=== PATIENT | male | born 1965 | race Caucasian/White ===

== ENCOUNTER 2020-08-25 12:50 | Inpatient (IN) | payer MEDICAID, OTHER ==
[~2020-08-25] VITALS: Ht 160 cm; Wt 57.2 kg
[2020-08-25] MEDS ORDERED: NITROGLYCERIN 0.4MG TABLET SL SL PRN ×2 (13:30→15:00)
[2020-08-25 14:19] LABS: BASOPHILS % 1.4 % (0.0-2.0); CHLORIDE 105 mEq/L (98-107); EOSINOPHILS % 5.4 % (0.0-5.0); MEAN CORPUSCULAR VOLUME 87.5 fL (80.0-94.0); MEAN PLATELET VOLUME 8.2 fl (7.4-10.4); MONOCYTES % 6.3 % (2.0-8.0); NEUTROPHILS % 69.9 % (40.0-76.0); PLATELET 352 x1000/uL (130-400); RED BLOOD CELL COUNT 2.33 mill/uL (4.7-6.1); RED CELL DISTRIBUTION WIDTH 14.5 % (11.6-14.6)
[2020-08-25 14:43] LABS: HEMATOCRIT. 20.4 % (42.0-52.0)
[2020-08-25] MEDS ORDERED: ZOLPIDEM TARTRATE 5MG TABLET PO PRN (15:00)
[2020-08-25] MEDS ORDERED: DOCUSATE SODIUM 100MG CAPSULE PO PRN (15:00)
[2020-08-25] MEDS ORDERED: DEXTROSE 50% WATER 50ML SYRINGE IV PRN (15:00)
[2020-08-25] MEDS ORDERED: CLONIDINE 0.1MG TABLET PO PRN (15:00)
[2020-08-25] MEDS ORDERED: DIPHENHYDRAMINE 50MG/ML VIAL IV PRN (15:00)
[2020-08-25] MEDS ORDERED: MAGNESIUM/ALUMINUM HYDROXIDE/SIMETHICONE 30ML UDC PO PRN (15:00)
[2020-08-25] MEDS ORDERED: ALBUTEROL 6.7GM HFA INHALER ORI PRN (15:00)
[2020-08-25] MEDS ORDERED: GUAIFENESIN 200MG/10ML SUGAR FREE UDC PO PRN (15:00)
[2020-08-25] MEDS: ALBUTEROL 6.7GM HFA INHALER ORI SCH ×2 (15:00→21:00)
[2020-08-25] MEDS ORDERED: NOREPINEPHRINE 8 MG in DEXT 5% WATER 242 ML IV PRN (15:00)
[2020-08-25] MEDS ORDERED: ONDANSETRON HCL 4MG/2ML INJ IV PRN (15:00)
[2020-08-25] MEDS ORDERED: ACETAMINOPHEN 325MG TABLET PO PRN (15:00)
[2020-08-25 15:22] LABS: INR 1.1; PARTIAL THROMBOPLASTIN TIME 30.4 sec (23.4-31.0); PROTHROMBIN TIME 11.1 sec (9.6-11.0)
[2020-08-25] MEDS: AMLODIPINE 10MG TABLET PO SCH (15:58)
[2020-08-25 16:48] LABS: VITAMIN B12 SERUM 944 pg/mL (211-911)
[2020-08-25 16:50] LABS: FOLIC ACID (FOLATE) SERUM > 20.00 ng/mL (>5.38)
[2020-08-25] MEDS: FAMOTIDINE 20MG TABLET PO SCH (17:00)
[2020-08-25] MEDS: ACETAMINOPHEN 325MG TABLET PO PRN (17:12)
[2020-08-25] MEDS: BLOOD SUGAR DIAGNOSTIC STRIP TEST SCH ×2 (17:55→22:37)
[2020-08-25] MEDS: INSULIN LISPRO 100 UNITS/ML SUBCUT SCH ×2 (18:38→22:51)
[2020-08-25] MEDS ORDERED: INSULIN GLARGINE UD 100 UNITS/ML SYR SUBCUT SCH (22:00)
[2020-08-25] MEDS: SEVELAMER CARBONATE 800 MG TABLET PO SCH (22:30)
[2020-08-25] MEDS: ASCORBIC ACID 500 MG TABLET PO SCH (22:51)
[2020-08-25] MEDS: METOPROLOL TARTRATE 25MG TABLET PO SCH (22:52)
[2020-08-25 23:42] LABS: CREATINE KINASE 48 IU/L (39-308)
[2020-08-25 23:43] LABS: CREATINE KINASE MB FRACTION 1.6 ng/mL (0.5-3.6)
[2020-08-26] MEDS: ALBUTEROL 6.7GM HFA INHALER ORI SCH (03:00)
[2020-08-26] MEDS: BLOOD SUGAR DIAGNOSTIC STRIP TEST SCH ×4 (06:29→21:00)
[2020-08-26] MEDS: SEVELAMER CARBONATE 800 MG TABLET PO SCH ×3 (06:29→16:52)
[2020-08-26] MEDS: INSULIN LISPRO 100 UNITS/ML SUBCUT SCH ×4 (06:29→21:00)
[2020-08-26] MEDS: ASCORBIC ACID 500 MG TABLET PO SCH ×2 (08:24→23:11)
[2020-08-26] MEDS: ZINC SULFATE 220 MG ( 50 ) CAPSULE PO SCH (08:24)
[2020-08-26] MEDS: METOPROLOL TARTRATE 25MG TABLET PO SCH ×2 (08:24→23:11)
[2020-08-26] MEDS: AMLODIPINE 10MG TABLET PO SCH (08:24)
[2020-08-26 08:49] LABS: BASOPHILS % 1.5 % (0.0-2.0); EOSINOPHILS % 3.7 % (0.0-5.0); HEMOGLOBIN. 9.2 g/dL (14.0-18.0); LYMPHOCYTES % 20.8 % (20.0-50.0); MEAN CORPUSCULAR VOLUME 87.7 fL (80.0-94.0); MEAN PLATELET VOLUME 7.5 fl (7.4-10.4); MONOCYTES % 6.7 % (2.0-8.0); NEUTROPHILS % 67.3 % (40.0-76.0); PLATELET 381 x1000/uL (130-400); RED BLOOD CELL COUNT 3.08 mill/uL (4.7-6.1); RED CELL DISTRIBUTION WIDTH 14.6 % (11.6-14.6)
[2020-08-26 08:58] LABS: CHLORIDE 110 mEq/L (98-107)
[2020-08-26 09:05] LABS: PHOSPHORUS 4.9 mg/dL (2.5-4.9)
[2020-08-26 09:07] LABS: CREATINE KINASE 40 IU/L (39-308)
[2020-08-26 09:10] LABS: CREATINE KINASE MB FRACTION 1.6 ng/mL (0.5-3.6)
[2020-08-26 09:28] LABS: *AMPHETAMINES SCREEN URINE NEGATIVE (NEGATIVE); *BARBITURATES SCREEN URINE NEGATIVE (NEGATIVE); *BENZODIAZEPINES SCREEN URINE NEGATIVE (NEGATIVE); *COCAINE SCREEN URINE NEGATIVE (NEGATIVE)
[2020-08-26 09:29] LABS: CANNABINOID URINE SCREEN NEGATIVE (NEGATIVE); METHADONE URINE SCREEN NEGATIVE (NEGATIVE); OPIATES URINE SCREEN NEGATIVE (NEGATIVE); PHENCYCLIDINE URINE SCREEN NEGATIVE (NEGATIVE)
[2020-08-26] MEDS: FUROSEMIDE 40MG/4ML VIAL IVP SCH (09:36)
[2020-08-26] MEDS: ACETAMINOPHEN 325MG TABLET PO PRN (12:00)
[2020-08-26 15:25] VITALS: BP 137/83
[2020-08-26] MEDS: FAMOTIDINE 20MG TABLET PO SCH (16:52)
[2020-08-26 22:00] VITALS: BP 141/84
[2020-08-27 04:00] VITALS: BP 145/90
[2020-08-27] MEDS: NITROGLYCERIN 0.4MG TABLET SL SL PRN ×3 (06:30→08:58)
[2020-08-27] MEDS: SEVELAMER CARBONATE 800 MG TABLET PO SCH ×3 (06:50→17:05)
[2020-08-27] MEDS: BLOOD SUGAR DIAGNOSTIC STRIP TEST SCH ×4 (07:25→21:00)
[2020-08-27] MEDS: INSULIN GLARGINE UD 100 UNITS/ML SYR SUBCUT SCH (07:26)
[2020-08-27 07:28] LABS: BASOPHILS % 1.9 % (0.0-2.0); EOSINOPHILS % 5.5 % (0.0-5.0); HEMATOCRIT. 27.7 % (42.0-52.0); HEMOGLOBIN. 9.5 g/dL (14.0-18.0); LYMPHOCYTES % 18.4 % (20.0-50.0); MEAN CORPUSCULAR HEMOGLOBIN 30.1 pg (28.0-32.0); MEAN CORPUSCULAR VOLUME 87.7 fL (80.0-94.0); MEAN PLATELET VOLUME 7.9 fl (7.4-10.4); MONOCYTES % 7.6 % (2.0-8.0); NEUTROPHILS % 66.6 % (40.0-76.0); PLATELET 402 x1000/uL (130-400); RED BLOOD CELL COUNT 3.16 mill/uL (4.7-6.1); RED CELL DISTRIBUTION WIDTH 14.9 % (11.6-14.6)
[2020-08-27 08:00] VITALS: BP 142/85
[2020-08-27] MEDS: FUROSEMIDE 40MG/4ML VIAL IVP SCH (08:47)
[2020-08-27] MEDS: AMLODIPINE 10MG TABLET PO SCH (08:47)
[2020-08-27] MEDS: ZINC SULFATE 220 MG ( 50 ) CAPSULE PO SCH (08:48)
[2020-08-27] MEDS: METOPROLOL TARTRATE 25MG TABLET PO SCH ×2 (08:48→23:28)
[2020-08-27] MEDS: INSULIN LISPRO 100 UNITS/ML SUBCUT SCH ×4 (09:10→21:00)
[2020-08-27] MEDS: ASCORBIC ACID 500 MG TABLET PO SCH ×2 (13:11→23:28)
[2020-08-27] MEDS: ACETAMINOPHEN 325MG TABLET PO PRN (13:11)
[2020-08-27 14:00] VITALS: BP 135/77
[2020-08-27] MEDS: FAMOTIDINE 20MG TABLET PO SCH (17:05)
[2020-08-28] MEDS: BLOOD SUGAR DIAGNOSTIC STRIP TEST SCH ×4 (06:52→21:00)
[2020-08-28] MEDS: SEVELAMER CARBONATE 800 MG TABLET PO SCH ×3 (06:53→17:34)
[2020-08-28] MEDS: INSULIN GLARGINE UD 100 UNITS/ML SYR SUBCUT SCH (06:54)
[2020-08-28 08:00] VITALS: BP 148/84
[2020-08-28] MEDS: METOPROLOL TARTRATE 25MG TABLET PO SCH ×2 (08:24→20:34)
[2020-08-28] MEDS: FUROSEMIDE 40MG/4ML VIAL IVP SCH (08:24)
[2020-08-28] MEDS: ZINC SULFATE 220 MG ( 50 ) CAPSULE PO SCH (08:24)
[2020-08-28] MEDS: AMLODIPINE 10MG TABLET PO SCH (08:25)
[2020-08-28] MEDS: ASCORBIC ACID 500 MG TABLET PO SCH ×2 (08:25→20:33)
[2020-08-28] MEDS: INSULIN LISPRO 100 UNITS/ML SUBCUT SCH ×4 (08:27→22:56)
[2020-08-28 14:00] VITALS: BP 138/83
[2020-08-28] MEDS: FAMOTIDINE 20MG TABLET PO SCH (17:34)
[2020-08-29] MEDS: SEVELAMER CARBONATE 800 MG TABLET PO SCH ×3 (06:18→18:48)
[2020-08-29] MEDS: BLOOD SUGAR DIAGNOSTIC STRIP TEST SCH ×3 (06:21→21:00)
[2020-08-29] MEDS: INSULIN LISPRO 100 UNITS/ML SUBCUT SCH ×4 (06:22→23:08)
[2020-08-29 06:51] LABS: EOSINOPHILS % 3.5 % (0.0-5.0); HEMATOCRIT. 29.1 % (42.0-52.0); LYMPHOCYTES % 16.5 % (20.0-50.0); MEAN CORPUSCULAR HEMOGLOBIN 29.6 pg (28.0-32.0); MEAN CORPUSCULAR VOLUME 86.7 fL (80.0-94.0); MEAN PLATELET VOLUME 7.8 fl (7.4-10.4); MONOCYTES % 6.4 % (2.0-8.0); NEUTROPHILS % 72.6 % (40.0-76.0); PLATELET 413 x1000/uL (130-400); RED BLOOD CELL COUNT 3.36 mill/uL (4.7-6.1); RED CELL DISTRIBUTION WIDTH 14.5 % (11.6-14.6)
[2020-08-29 08:10] VITALS: BP 128/81
[2020-08-29] MEDS: AMLODIPINE 10MG TABLET PO SCH (09:54)
[2020-08-29] MEDS: ZINC SULFATE 220 MG ( 50 ) CAPSULE PO SCH (09:54)
[2020-08-29] MEDS: METOPROLOL TARTRATE 25MG TABLET PO SCH ×2 (09:54→22:06)
[2020-08-29] MEDS: FUROSEMIDE 40MG/4ML VIAL IVP SCH (09:54)
[2020-08-29] MEDS: INSULIN GLARGINE UD 100 UNITS/ML SYR SUBCUT SCH (09:58)
[2020-08-29 12:06] VITALS: BP 144/76
[2020-08-29] MEDS: ASCORBIC ACID 500 MG TABLET PO SCH ×2 (13:48→22:07)
[2020-08-29 16:06] VITALS: BP 140/84
[2020-08-29] MEDS: FAMOTIDINE 20MG TABLET PO SCH (18:48)
[2020-08-29 22:00] VITALS: BP 151/77
[2020-08-30 06:00] VITALS: BP 138/77
[2020-08-30] MEDS: INSULIN LISPRO 100 UNITS/ML SUBCUT SCH (06:47)
[2020-08-30] MEDS: BLOOD SUGAR DIAGNOSTIC STRIP TEST SCH (06:47)
[2020-08-30] MEDS: SEVELAMER CARBONATE 800 MG TABLET PO SCH (06:48)
[2020-08-30 08:00] VITALS: BP 147/86
[2020-08-30] MEDS: ALBUTEROL 6.7GM HFA INHALER ORI SCH (09:00)
[2020-08-30] MEDS: ASCORBIC ACID 500 MG TABLET PO SCH (09:39)
[2020-08-30] MEDS: FUROSEMIDE 40MG/4ML VIAL IVP SCH (09:39)
[2020-08-30] MEDS: ZINC SULFATE 220 MG ( 50 ) CAPSULE PO SCH (09:39)
[2020-08-30] MEDS: AMLODIPINE 10MG TABLET PO SCH (09:39)
[2020-08-30] MEDS: METOPROLOL TARTRATE 25MG TABLET PO SCH (09:39)
[2020-08-30] MEDS: INSULIN GLARGINE UD 100 UNITS/ML SYR SUBCUT SCH (10:45)
[2020-08-30 10:50] VITALS: BP 147/86
== END 2020-08-30 11:38 | disposition home or self-care (01) | DRG 137 ==
LOC: ER 12:50 → MICUSO 14:46 → EDBEDREQ 15:05 → 7EST 08-26 11:12
PROVIDERS: ADMIT Internal Medicine; ATTEND Internal Medicine
PROC: 30233N1 Transfusion of Nonautologous Red Blood Cells into Peripheral Vein, Percutaneous Approach (ICD-10-PCS; principal; 2020-08-26)
DX: U07.1 COVID-19 (principal); N17.0 Acute kidney failure with tubular necrosis; D63.1 Anemia in chronic kidney disease; E43 Unspecified severe protein-calorie malnutrition; E11.65 Type 2 diabetes mellitus with hyperglycemia; E83.51 Hypocalcemia; I50.30 Unspecified diastolic (congestive) heart failure; E87.5 Hyperkalemia; N04.9 Nephrotic syndrome with unspecified morphologic changes; E11.22 Type 2 diabetes mellitus with diabetic chronic kidney disease; E78.00 Pure hypercholesterolemia, unspecified; E11.21 Type 2 diabetes mellitus with diabetic nephropathy; I13.2 Hypertensive heart and chronic kidney disease with heart failure and with stage 5 chronic kidney disease, or end stage renal disease; N18.6 End stage renal disease; Z68.22 Body mass index [BMI] 22.0-22.9, adult; Z79.899 Other long term (current) drug therapy; Z99.2 Dependence on renal dialysis
CPT/HCPCS: 36415; 71045; 80048; 80053; 80061; 80305; 82550; 82553; 82607; 82746; 82962; 83036; 83540; 83550; 83735; 83880; 84100; 84145; 84484; 85025; 86850; 86900; 86920; 93005; 93970; 99285; J1815; J1940; P9016; U0003

== ENCOUNTER 2020-09-23 11:28 | Emergency (ER) | payer MEDICAID ==
[~2020-09-23] VITALS: Ht 160 cm; Wt 66.0 kg
[2020-09-23] MEDS ORDERED: TETRACAINE 0.5% OPHTH DROPS 4ML LEFTEYE ONE (12:15)
[2020-09-23] MEDS ORDERED: BALANCED SALT IRRIG SOLN 15ML IR ONE (12:15)
[2020-09-23] MEDS ORDERED: ACETAMINOPHEN 325MG TABLET PO STA (12:15)
[2020-09-23] MEDS ORDERED: FLUORESCEIN SODIUM 1MG/STRIP LEFTEYE ONE (12:15)
[2020-09-23] MEDS ORDERED: ACET-2708 PO (14:36)
[2020-09-23 14:47] VITALS: BP 159/85
== END 2020-09-23 14:48 | disposition home or self-care (01) ==
LOC: ER 11:28
DX: H54.61 Unqualified visual loss, right eye, normal vision left eye (principal); H54.7 Unspecified visual loss; R51.9 Headache, unspecified; I11.0 Hypertensive heart disease with heart failure; I50.9 Heart failure, unspecified; E11.9 Type 2 diabetes mellitus without complications
CPT/HCPCS: 99283

== ENCOUNTER 2021-09-17 11:00 | Inpatient (IN) | payer MEDICAID ==
[~2021-09-17] VITALS: Ht 160 cm; Wt 69.9 kg
[~2021-09-17 11:00] MED LIST: ACET-2708 PO; ASCO-339 MT; FURO40TA5 MT; INSU100V3 SUBCUT; LOSA25TA26 MT; SODI650T MT
[2021-09-17 11:53] LABS: HEMATOCRIT. 35.5 % (42.0-52.0); HEMOGLOBIN. 11.4 g/dL (14.0-18.0); MEAN CORPUSCULAR HEMOGLOBIN 30.3 pg (28.0-32.0); MEAN CORPUSCULAR VOLUME 94.3 fL (80.0-94.0); MEAN PLATELET VOLUME 8.1 fl (7.4-10.4); PLATELET 293 x1000/uL (130-400); RED BLOOD CELL COUNT 3.76 mill/uL (4.7-6.1); RED CELL DISTRIBUTION WIDTH 14.3 % (11.6-14.6)
[2021-09-17 11:59] LABS: CHLORIDE 102 mEq/L (98-107)
[2021-09-17 12:55] LABS: PLATELET ESTIMATE NORMAL
[2021-09-17] MEDS ORDERED: CALCIUM GLUCONATE 1,000 MG in DEXT 5% WATER 100 ML IV ONE (13:15)
[2021-09-17] MEDS ORDERED: MORPHINE SULFATE 4 MG/ML CPJ (NOT FOR IM USE) IV STA (13:15)
[2021-09-17] MEDS ORDERED: ONDANSETRON HCL 4MG/2ML INJ IV STA (13:15)
[2021-09-17] MEDS ORDERED: INSULIN REGULAR (HUMULIN R) 300UNITS/3ML VIAL IV ONE (13:15)
[2021-09-17] MEDS ORDERED: SODIUM BICARBONATE 8.4% 1 MEQ/ML 50ML SYR IV ONE (13:15)
[2021-09-17] MEDS ORDERED: DEXTROSE 50% WATER 50ML SYRINGE IV ONE (13:15)
[2021-09-17] MEDS ORDERED: CALCIUM GLUCONATE 1GM PREMIX 50 ML IV SCH (14:00)
[2021-09-17] MEDS ORDERED: TETRACAINE 0.5% OPHTH DROPS 4ML LEFTEYE ONE (14:15)
[2021-09-17] MEDS ORDERED: CYCLOPENTOLATE HCL 1% OPHTH DROPS 2ML LEFTEYE SCH (15:00)
[2021-09-17] MEDS ORDERED: NITROGLYCERIN 0.4MG TABLET SL SL PRN (17:15)
[2021-09-17] MEDS ORDERED: ZOLPIDEM TARTRATE 5MG TABLET PO PRN (17:15)
[2021-09-17] MEDS ORDERED: DEXTROSE 50% WATER 50ML SYRINGE IV PRN (17:15)
[2021-09-17] MEDS ORDERED: IPRATROPIUM/ALBUTEROL 0.5-3(2.5)MG/3ML NEB NEB PRN (17:15)
[2021-09-17] MEDS ORDERED: GUAIFENESIN 200MG/10ML SUGAR FREE UDC PO PRN (17:15)
[2021-09-17] MEDS ORDERED: MAGNESIUM/ALUMINUM HYDROXIDE/SIMETHICONE 30ML UDC PO PRN (17:15)
[2021-09-17] MEDS ORDERED: DOCUSATE SODIUM 100MG CAPSULE PO PRN (17:15)
[2021-09-17] MEDS ORDERED: ACETAMINOPHEN 325MG TABLET PO PRN ×2 (17:15)
[2021-09-17] MEDS ORDERED: DIPHENHYDRAMINE 50MG/ML VIAL IV PRN (17:15)
[2021-09-17] MEDS: PREDNISOLONE ACETATE 1% OPHTH DROPS 5ML LEFTEYE SCH (18:55)
[2021-09-17] MEDS: INSULIN LISPRO 100 UNITS/ML SUBCUT SCH ×2 (19:49→21:00)
[2021-09-17] MEDS: ACETAZOLAMIDE 250MG TABLET PO SCH (20:15)
[2021-09-17] MEDS: CLONIDINE 0.1MG TABLET PO PRN (20:15)
[2021-09-17] MEDS: TRAMADOL 50MG TABLET PO PRN (20:16)
[2021-09-17] MEDS: METOPROLOL TARTRATE 25MG TABLET PO SCH (21:43)
[2021-09-17] MEDS: ENOXAPARIN 30MG/0.3ML SYR SUBCUT SCH (21:43)
[2021-09-17] MEDS: FAMOTIDINE 20MG TABLET PO SCH (21:44)
[2021-09-17] MEDS: BLOOD SUGAR DIAGNOSTIC STRIP TEST SCH (21:44)
[2021-09-17] MEDS: BRIMONIDINE 0.2% OPHTH DROPS 5ML BOTHEYE SCH (21:48)
[2021-09-17] MEDS: PILOCARPINE HCL 1% OPHTH DROPS 15ML BOTHEYE SCH (21:48)
[2021-09-17 22:48] LABS: CREATINE KINASE MB FRACTION 3.9 ng/mL (0.5-3.6)
[2021-09-18] VITALS (7 sets, daily range): BP systolic 118–200; BP diastolic 67–96
[2021-09-18] MEDS: PREDNISOLONE ACETATE 1% OPHTH DROPS 5ML LEFTEYE SCH ×2 (00:26→06:35)
[2021-09-18] MEDS: ACETAZOLAMIDE 250MG TABLET PO SCH ×2 (00:26→06:33)
[2021-09-18 05:25] LABS: BASOPHILS % 1.6 % (0.0-2.0); EOSINOPHILS % 4.9 % (0.0-5.0); HEMATOCRIT. 31.2 % (42.0-52.0); HEMOGLOBIN. 9.9 g/dL (14.0-18.0); LYMPHOCYTES % 8.2 % (20.0-50.0); MEAN CORPUSCULAR HEMOGLOBIN 30.4 pg (28.0-32.0); MEAN CORPUSCULAR VOLUME 95.9 fL (80.0-94.0); MEAN PLATELET VOLUME 8.8 fl (7.4-10.4); MONOCYTES % 8.4 % (2.0-8.0); NEUTROPHILS % 76.9 % (40.0-76.0); PLATELET 248 x1000/uL (130-400); RED BLOOD CELL COUNT 3.26 mill/uL (4.7-6.1); RED CELL DISTRIBUTION WIDTH 14.5 % (11.6-14.6)
[2021-09-18 05:29] LABS: CHLORIDE 105 mEq/L (98-107)
[2021-09-18 05:36] LABS: PHOSPHORUS 4.8 mg/dL (2.5-4.9)
[2021-09-18 05:38] LABS: CREATINE KINASE 64 IU/L (39-308)
[2021-09-18 05:41] LABS: CREATINE KINASE MB FRACTION 3.9 ng/mL (0.5-3.6)
[2021-09-18] MEDS: SEVELAMER CARBONATE 800 MG TABLET PO SCH ×3 (06:33→17:31)
[2021-09-18] MEDS: BRIMONIDINE 0.2% OPHTH DROPS 5ML BOTHEYE SCH (06:35)
[2021-09-18] MEDS: PILOCARPINE HCL 1% OPHTH DROPS 15ML BOTHEYE SCH (06:35)
[2021-09-18] MEDS ORDERED: SODIUM POLYSTYRENE SULFONATE 15 G/60 ML BOT PO SCH ×2 (07:00→07:21)
[2021-09-18] MEDS: INSULIN LISPRO 100 UNITS/ML SUBCUT SCH ×4 (07:00→22:08)
[2021-09-18] MEDS ORDERED: SODIUM BICARBONATE 8.4% 1 MEQ/ML 50ML SYR IV SCH ×2 (07:00→07:21)
[2021-09-18] MEDS: BLOOD SUGAR DIAGNOSTIC STRIP TEST SCH ×4 (07:07→21:00)
[2021-09-18] MEDS ORDERED: INSULIN REGULAR (HUMULIN R) 300UNITS/3ML VIAL IV SCH ×2 (07:15→07:21)
[2021-09-18] MEDS ORDERED: DEXTROSE 50% WATER 50ML SYRINGE IV SCH ×2 (07:15→07:21)
[2021-09-18] MEDS ORDERED: CALCIUM GLUCONATE 1,000 MG in DEXT 5% WATER 90 ML IV STA (07:21)
[2021-09-18] MEDS ORDERED: CALCIUM GLUCONATE 1GM PREMIX 50 ML IV SCH (08:00)
[2021-09-18] MEDS: METOPROLOL TARTRATE 25MG TABLET PO SCH ×3 (09:00→22:04)
[2021-09-18] MEDS: ASPIRIN 325MG EC TABLET PO SCH (11:04)
[2021-09-18] MEDS: TRAMADOL 50MG TABLET PO PRN ×2 (11:54→23:33)
[2021-09-18] MEDS: CLONIDINE 0.1MG TABLET PO PRN (11:54)
[2021-09-18] MEDS: NIFEDIPINE XL 60MG TAB PO SCH (13:57)
[2021-09-18] MEDS: HYDRALAZINE HCL 50MG TABLET PO SCH ×2 (13:57→22:06)
[2021-09-18] MEDS ORDERED: TIMO5DRO32 EACHEYE (18:39)
[2021-09-18] MEDS ORDERED: BRIM5DRO6 LEFTEYE (18:40)
[2021-09-18] MEDS ORDERED: MOXI3DRO12 LEFTEYE (18:40)
[2021-09-18] MEDS ORDERED: PRED5DRO22 LEFTEYE (18:40)
[2021-09-18] MEDS ORDERED: CARV6.2548 MT (18:45)
[2021-09-18] MEDS ORDERED: LANTUSUD SUBCUT (18:45)
[2021-09-18] MEDS ORDERED: FURO80TA3 MT (18:45)
[2021-09-18] MEDS ORDERED: ASPI-1497 MT (18:45)
[2021-09-18] MEDS ORDERED: NALOXONE HCL 0.4MG/ML VIAL IV PRN (19:15)
[2021-09-18] MEDS: FAMOTIDINE 20MG TABLET PO SCH (22:04)
[2021-09-18] MEDS: ENOXAPARIN 30MG/0.3ML SYR SUBCUT SCH (22:06)
[2021-09-19] VITALS (7 sets, daily range): BP systolic 106–139; BP diastolic 59–77
[2021-09-19] MEDS: HYDRALAZINE HCL 50MG TABLET PO SCH ×3 (05:58→21:48)
[2021-09-19] MEDS: TRAMADOL 50MG TABLET PO PRN ×2 (06:03→12:52)
[2021-09-19] MEDS: BLOOD SUGAR DIAGNOSTIC STRIP TEST SCH ×4 (06:41→21:50)
[2021-09-19] MEDS: ASPIRIN 325MG EC TABLET PO SCH (09:03)
[2021-09-19] MEDS: NIFEDIPINE XL 60MG TAB PO SCH (09:03)
[2021-09-19] MEDS: METOPROLOL TARTRATE 25MG TABLET PO SCH ×2 (09:04→21:48)
[2021-09-19] MEDS: INSULIN LISPRO 100 UNITS/ML SUBCUT SCH ×4 (09:04→21:49)
[2021-09-19] MEDS: SEVELAMER CARBONATE 800 MG TABLET PO SCH ×3 (09:04→17:58)
[2021-09-19] MEDS: ONDANSETRON HCL 4MG/2ML INJ IV PRN (15:59)
[2021-09-19] MEDS: PILOCARPINE HCL 1% OPHTH DROPS 15ML BOTHEYE SCH ×2 (16:01→21:50)
[2021-09-19] MEDS: BRIMONIDINE 0.2% OPHTH DROPS 5ML BOTHEYE SCH ×2 (16:02→21:49)
[2021-09-19] MEDS: CYCLOPENTOLATE HCL 1% OPHTH DROPS 2ML LEFTEYE SCH (18:19)
[2021-09-19] MEDS: PREDNISOLONE ACETATE 1% OPHTH DROPS 5ML LEFTEYE SCH (18:21)
[2021-09-19] MEDS: ENOXAPARIN 30MG/0.3ML SYR SUBCUT SCH (21:48)
[2021-09-19] MEDS: FAMOTIDINE 20MG TABLET PO SCH (21:48)
[2021-09-20] MEDS: PREDNISOLONE ACETATE 1% OPHTH DROPS 5ML LEFTEYE SCH ×4 (00:58→18:49)
[2021-09-20 04:00] VITALS: BP 138/70
[2021-09-20] MEDS: HYDRALAZINE HCL 50MG TABLET PO SCH ×3 (05:27→21:50)
[2021-09-20] MEDS: BRIMONIDINE 0.2% OPHTH DROPS 5ML BOTHEYE SCH ×3 (05:27→21:49)
[2021-09-20] MEDS: PILOCARPINE HCL 1% OPHTH DROPS 15ML BOTHEYE SCH ×3 (05:27→21:49)
[2021-09-20] MEDS: BLOOD SUGAR DIAGNOSTIC STRIP TEST SCH ×4 (05:28→21:43)
[2021-09-20 06:37] LABS: BASOPHILS % 1.3 % (0.0-2.0); EOSINOPHILS % 5.8 % (0.0-5.0); HEMATOCRIT. 29.4 % (42.0-52.0); HEMOGLOBIN. 9.6 g/dL (14.0-18.0); LYMPHOCYTES % 9.2 % (20.0-50.0); MEAN CORPUSCULAR HEMOGLOBIN 30.9 pg (28.0-32.0); MEAN CORPUSCULAR VOLUME 94.5 fL (80.0-94.0); MEAN PLATELET VOLUME 9.3 fl (7.4-10.4); MONOCYTES % 9.7 % (2.0-8.0); PLATELET 250 x1000/uL (130-400); RED BLOOD CELL COUNT 3.11 mill/uL (4.7-6.1); RED CELL DISTRIBUTION WIDTH 14.1 % (11.6-14.6)
[2021-09-20 07:45] VITALS: BP 119/58
[2021-09-20] MEDS: INSULIN LISPRO 100 UNITS/ML SUBCUT SCH ×4 (09:02→21:00)
[2021-09-20] MEDS: NIFEDIPINE XL 60MG TAB PO SCH (09:03)
[2021-09-20] MEDS: METOPROLOL TARTRATE 25MG TABLET PO SCH ×2 (09:03→21:50)
[2021-09-20] MEDS: TRAMADOL 50MG TABLET PO PRN (09:03)
[2021-09-20] MEDS: ONDANSETRON HCL 4MG/2ML INJ IV PRN (09:03)
[2021-09-20] MEDS: SEVELAMER CARBONATE 800 MG TABLET PO SCH ×3 (09:03→18:49)
[2021-09-20] MEDS: ASPIRIN 325MG EC TABLET PO SCH (09:05)
[2021-09-20] MEDS: CYCLOPENTOLATE HCL 1% OPHTH DROPS 2ML LEFTEYE SCH ×3 (09:07→18:49)
[2021-09-20 11:30] VITALS: BP 138/64
[2021-09-20 20:00] VITALS: BP 136/70
[2021-09-20] MEDS: ENOXAPARIN 30MG/0.3ML SYR SUBCUT SCH (21:49)
[2021-09-20] MEDS: FAMOTIDINE 20MG TABLET PO SCH (21:49)
[2021-09-21] VITALS: BP 148/82
[2021-09-21] MEDS: PREDNISOLONE ACETATE 1% OPHTH DROPS 5ML LEFTEYE SCH ×5 (00:34→23:33)
[2021-09-21 04:00] VITALS: BP 136/78
[2021-09-21] MEDS: HYDRALAZINE HCL 50MG TABLET PO SCH ×3 (05:19→21:35)
[2021-09-21] MEDS: BRIMONIDINE 0.2% OPHTH DROPS 5ML BOTHEYE SCH ×3 (05:19→21:35)
[2021-09-21] MEDS: PILOCARPINE HCL 1% OPHTH DROPS 15ML BOTHEYE SCH ×3 (05:19→21:35)
[2021-09-21] MEDS: BLOOD SUGAR DIAGNOSTIC STRIP TEST SCH ×4 (05:28→20:55)
[2021-09-21 08:00] VITALS: BP 144/75
[2021-09-21] MEDS: METOPROLOL TARTRATE 25MG TABLET PO SCH ×2 (09:42→20:55)
[2021-09-21] MEDS: SEVELAMER CARBONATE 800 MG TABLET PO SCH ×3 (09:42→18:07)
[2021-09-21] MEDS: ASPIRIN 325MG EC TABLET PO SCH (09:42)
[2021-09-21] MEDS: NIFEDIPINE XL 60MG TAB PO SCH (09:42)
[2021-09-21] MEDS: CYCLOPENTOLATE HCL 1% OPHTH DROPS 2ML LEFTEYE SCH ×3 (09:43→18:07)
[2021-09-21] MEDS: INSULIN LISPRO 100 UNITS/ML SUBCUT SCH ×4 (09:48→21:47)
[2021-09-21 12:00] VITALS: BP 151/77
[2021-09-21 14:01] LABS: BASOPHILS % 1.2 % (0.0-2.0); EOSINOPHILS % 5.4 % (0.0-5.0); HEMATOCRIT. 28.9 % (42.0-52.0); HEMOGLOBIN. 9.7 g/dL (14.0-18.0); LYMPHOCYTES % 10.8 % (20.0-50.0); MEAN CORPUSCULAR HEMOGLOBIN 31.7 pg (28.0-32.0); MEAN CORPUSCULAR VOLUME 94.4 fL (80.0-94.0); MONOCYTES % 10.2 % (2.0-8.0); NEUTROPHILS % 72.4 % (40.0-76.0); PLATELET 239 x1000/uL (130-400); RED BLOOD CELL COUNT 3.07 mill/uL (4.7-6.1)
[2021-09-21 16:52] VITALS: BP 140/75
[2021-09-21 20:00] VITALS: BP 102/59
[2021-09-21] MEDS: FAMOTIDINE 20MG TABLET PO SCH (21:34)
[2021-09-21] MEDS: ENOXAPARIN 30MG/0.3ML SYR SUBCUT SCH (21:35)
[2021-09-21 23:27] LABS: HEPATITIS B SURFACE ANTIGEN NEGATIVE
[2021-09-22] VITALS: BP 132/65
[2021-09-22 04:00] VITALS: BP 162/74
[2021-09-22] MEDS: PREDNISOLONE ACETATE 1% OPHTH DROPS 5ML LEFTEYE SCH ×2 (06:06→13:09)
[2021-09-22] MEDS: PILOCARPINE HCL 1% OPHTH DROPS 15ML BOTHEYE SCH ×2 (06:06→13:09)
[2021-09-22] MEDS: BRIMONIDINE 0.2% OPHTH DROPS 5ML BOTHEYE SCH ×2 (06:06→13:10)
[2021-09-22] MEDS: HYDRALAZINE HCL 50MG TABLET PO SCH ×2 (06:12→13:09)
[2021-09-22] MEDS: INSULIN LISPRO 100 UNITS/ML SUBCUT SCH ×2 (07:36→12:41)
[2021-09-22] MEDS: BLOOD SUGAR DIAGNOSTIC STRIP TEST SCH ×2 (07:36→12:41)
[2021-09-22 07:44] LABS: HEMATOCRIT. 27.2 % (42.0-52.0); HEMOGLOBIN. 8.9 g/dL (14.0-18.0); LYMPHOCYTES % 9.4 % (20.0-50.0); MEAN CORPUSCULAR HEMOGLOBIN 30.8 pg (28.0-32.0); MEAN CORPUSCULAR VOLUME 94.6 fL (80.0-94.0); MEAN PLATELET VOLUME 9.7 fl (7.4-10.4); MONOCYTES % 10.1 % (2.0-8.0); NEUTROPHILS % 74.5 % (40.0-76.0); PLATELET 224 x1000/uL (130-400); RED BLOOD CELL COUNT 2.88 mill/uL (4.7-6.1); RED CELL DISTRIBUTION WIDTH 13.9 % (11.6-14.6)
[2021-09-22 08:00] VITALS: BP 159/76
[2021-09-22] MEDS: METOPROLOL TARTRATE 25MG TABLET PO SCH ×2 (09:00→12:32)
[2021-09-22] MEDS: NIFEDIPINE XL 60MG TAB PO SCH ×2 (09:00→12:32)
[2021-09-22] MEDS: SEVELAMER CARBONATE 800 MG TABLET PO SCH ×2 (09:11→13:08)
[2021-09-22] MEDS: CYCLOPENTOLATE HCL 1% OPHTH DROPS 2ML LEFTEYE SCH ×2 (09:12→13:09)
[2021-09-22] MEDS: ASPIRIN 325MG EC TABLET PO SCH (09:12)
[2021-09-22 10:46] VITALS: BP 159/76
[2021-09-22 12:00] VITALS: BP 178/84
[2021-09-22] MEDS: CLONIDINE 0.1MG TABLET PO PRN (12:27)
== END 2021-09-22 15:00 | disposition home or self-care (01) | DRG 194 ==
LOC: ER 11:24 → EDBEDREQ 14:59 → MICUSO 15:43 → EDBEDREQ 15:55 → 6WST 09-18 09:27
PROVIDERS: ADMIT Internal Medicine; ATTEND Internal Medicine
PROC: 5A1D70Z Performance of Urinary Filtration, Intermittent, Less than 6 Hours Per Day (ICD-10-PCS; principal; 2021-09-17)
PROC: 5A1D70Z Performance of Urinary Filtration, Intermittent, Less than 6 Hours Per Day (ICD-10-PCS; 2021-09-19)
PROC: 5A1D70Z Performance of Urinary Filtration, Intermittent, Less than 6 Hours Per Day (ICD-10-PCS; 2021-09-21)
DX: I13.2 Hypertensive heart and chronic kidney disease with heart failure and with stage 5 chronic kidney disease, or end stage renal disease (principal); N18.6 End stage renal disease; E11.22 Type 2 diabetes mellitus with diabetic chronic kidney disease; D63.8 Anemia in other chronic diseases classified elsewhere; E87.1 Hypo-osmolality and hyponatremia; D64.9 Anemia, unspecified; E87.5 Hyperkalemia; H54.8 Legal blindness, as defined in USA; Z20.822 Contact with and (suspected) exposure to COVID-19; H40.9 Unspecified glaucoma; I16.1 Hypertensive emergency; Z99.2 Dependence on renal dialysis; Z79.4 Long term (current) use of insulin; E11.65 Type 2 diabetes mellitus with hyperglycemia; I50.33 Acute on chronic diastolic (congestive) heart failure
CPT/HCPCS: 36415; 70551; 71045; 80048; 80053; 80061; 82550; 82553; 82962; 83036; 83735; 84100; 84132; 84484; 85025; 86705; 86709; 86803; 87340; 87426; 93005; 93306; 93970; 99291; C1893; J0610; J1650; J1815; J2270; J2405; J3490; J7060

== ENCOUNTER 2022-07-09 22:06 | Inpatient (IN) | payer MEDICAID ==
[~2022-07-09] VITALS: Ht 160 cm; Wt 55.9 kg
[~2022-07-09 22:06] MED LIST changes: +AMLO10TA80 MT; +ASPI-1497 MT; +BRIM5DRO6 LEFTEYE; +CARV6.2548 MT; +ESCI20TA MT; +FURO80TA3 MT; +LANTUSUD SUBCUT; +LEVO250T74 MT; +MOXI3DRO12 LEFTEYE; +OMEP40CA20 MT; +PRED5DRO22 LEFTEYE; +SIMV-43 MT; +TIMO5DRO32 EACHEYE
[2022-07-09] MEDS ORDERED: ASPIRIN 81MG TABLET PO ONE (23:00)
[2022-07-09 23:27] LABS: BASOPHILS % 1.3 % (0.0-2.0); EOSINOPHILS % 8.4 % (0.0-5.0); HEMATOCRIT. 29.6 % (42.0-52.0); HEMOGLOBIN. 9.9 g/dL (14.0-18.0); LYMPHOCYTES % 10.5 % (20.0-50.0); MEAN CORPUSCULAR VOLUME 95.3 fL (80.0-94.0); MEAN PLATELET VOLUME 7.8 fl (7.4-10.4); MONOCYTES % 7.8 % (2.0-8.0); PLATELET 199 x1000/uL (130-400); RED BLOOD CELL COUNT 3.11 mill/uL (4.7-6.1); RED CELL DISTRIBUTION WIDTH 14.4 % (11.6-14.6)
[2022-07-09 23:30] LABS: CHLORIDE 102 mEq/L (98-107)
[2022-07-10] VITALS (8 sets, daily range): BP systolic 145–168; BP diastolic 63–90
[2022-07-10] MEDS ORDERED: SODIUM BICARBONATE 8.4% 1 MEQ/ML 50ML SYR IV ONE (00:30)
[2022-07-10] MEDS ORDERED: DEXTROSE 50% WATER 50ML SYRINGE IV ONE (00:30)
[2022-07-10] MEDS ORDERED: FUROSEMIDE 100MG/10ML VIAL IV STA (00:30)
[2022-07-10] MEDS ORDERED: INSULIN REGULAR (HUMULIN R) 300UNITS/3ML VIAL IV ONE (00:30)
[2022-07-10] MEDS ORDERED: CALCIUM CHLORIDE 1GM/10ML SYR IV ONE (00:30)
[2022-07-10] MEDS ORDERED: ALBUTEROL (0.083%) 2.5MG/3ML NEB HHN ONE (00:30)
[2022-07-10] MEDS ORDERED: CLONIDINE 0.2MG TABLET PO ONE (01:30)
[2022-07-10] MEDS ORDERED: ALBUTEROL (0.5%) 2.5MG/0.5ML NEB HHN ONE (02:59)
[2022-07-10] MEDS ORDERED: SODIUM BICARBONATE 8.4% 1 MEQ/ML 50ML SYR IV NR (03:00)
[2022-07-10] MEDS ORDERED: ASPIRIN 81MG TABLET PO NR (03:00)
[2022-07-10] MEDS ORDERED: INSULIN REGULAR (HUMULIN R) 300UNITS/3ML VIAL IV NR (03:00)
[2022-07-10] MEDS ORDERED: ALBUTEROL (0.083%) 2.5MG/3ML NEB HHN NR (03:00)
[2022-07-10] MEDS ORDERED: DEXTROSE 50% WATER 50ML SYRINGE IV NR (03:00)
[2022-07-10] MEDS ORDERED: FUROSEMIDE 100MG/10ML VIAL IV NR (03:00)
[2022-07-10] MEDS ORDERED: CALCIUM CHLORIDE 1GM/10ML SYR IV NR (03:00)
[2022-07-10] MEDS ORDERED: MORPHINE SULFATE 4 MG/ML CPJ (NOT FOR IM USE) IV ONE (03:15)
[2022-07-10] MEDS ORDERED: DEXTROSE 50% WATER 50ML SYRINGE IV PRN (09:15)
[2022-07-10] MEDS: AMLODIPINE 10MG TABLET PO SCH (09:15)
[2022-07-10] MEDS ORDERED: ONDANSETRON HCL 4MG/2ML INJ IV PRN (09:15)
[2022-07-10] MEDS: BLOOD SUGAR DIAGNOSTIC STRIP TEST SCH ×3 (12:28→21:00)
[2022-07-10] MEDS: INSULIN LISPRO 100 UNITS/ML SUBCUT SCH ×3 (12:45→21:51)
[2022-07-10] MEDS: ACETAMINOPHEN 325MG TABLET PO PRN ×2 (15:20→21:49)
[2022-07-10 15:41] LABS: HEPATITIS B SURFACE ANTIGEN NEGATIVE
[2022-07-10] MEDS ORDERED: CLONIDINE 0.1MG TABLET PO PRN (21:30)
[2022-07-11] VITALS (8 sets, daily range): BP systolic 145–186; BP diastolic 75–93
[2022-07-11] MEDS: ACETAMINOPHEN 325MG TABLET PO PRN ×2 (05:15→09:14)
[2022-07-11] MEDS: BLOOD SUGAR DIAGNOSTIC STRIP TEST SCH ×3 (05:50→17:39)
[2022-07-11] MEDS: INSULIN LISPRO 100 UNITS/ML SUBCUT SCH ×3 (06:36→17:58)
[2022-07-11 08:09] LABS: EOSINOPHILS % 10.3 % (0.0-5.0); HEMATOCRIT. 27.3 % (42.0-52.0); HEMOGLOBIN. 9.4 g/dL (14.0-18.0); LYMPHOCYTES % 18.4 % (20.0-50.0); MEAN CORPUSCULAR HEMOGLOBIN 32.2 pg (28.0-32.0); MEAN CORPUSCULAR VOLUME 94.1 fL (80.0-94.0); MEAN PLATELET VOLUME 8.6 fl (7.4-10.4); MONOCYTES % 10.5 % (2.0-8.0); NEUTROPHILS % 58.8 % (40.0-76.0); PLATELET 175 x1000/uL (130-400); RED CELL DISTRIBUTION WIDTH 14.3 % (11.6-14.6)
[2022-07-11] MEDS: AMLODIPINE 10MG TABLET PO SCH (09:07)
[2022-07-11] MEDS ORDERED: HYDRALAZINE HCL 100MG TABLET PO NR (09:30)
[2022-07-11] MEDS ORDERED: PNEUMOCOCCAL 23-VAL P-SAC VAC 0.5 ML IM ONE (11:00)
[2022-07-11] MEDS ORDERED: LORAZEPAM 0.5MG TABLET PO NR (17:30)
[2022-07-11] MEDS ORDERED: HYDRALAZINE HCL 100MG TABLET PO SCH (21:00)
== END 2022-07-12 05:31 | disposition home or self-care (01) | DRG 203 ==
LOC: ER 22:06 → MICUSO 07-10 02:30 → 7EST 07-10 21:30
PROVIDERS: ADMIT Internal Medicine; ATTEND Internal Medicine
PROC: 5A1D70Z Performance of Urinary Filtration, Intermittent, Less than 6 Hours Per Day (ICD-10-PCS; principal; 2022-07-10)
DX: M94.0 Chondrocostal junction syndrome [Tietze] (principal); I12.0 Hypertensive chronic kidney disease with stage 5 chronic kidney disease or end stage renal disease; N18.6 End stage renal disease; E11.22 Type 2 diabetes mellitus with diabetic chronic kidney disease; D63.1 Anemia in chronic kidney disease; E11.319 Type 2 diabetes mellitus with unspecified diabetic retinopathy without macular edema; E87.5 Hyperkalemia; Z20.822 Contact with and (suspected) exposure to COVID-19; E11.65 Type 2 diabetes mellitus with hyperglycemia; I16.0 Hypertensive urgency; Z99.2 Dependence on renal dialysis; Z79.899 Other long term (current) drug therapy
CPT/HCPCS: 36415; 71045; 80048; 80053; 82962; 83880; 84484; 85025; 86705; 86709; 86803; 87340; 87426; 87804; 90935; 93005; 99285; J1815; J1940; J2270; J3490

== ENCOUNTER 2025-05-16 16:33 | Emergency (ER) | payer MEDICAID ==
[~2025-05-16] VITALS: Ht 154.9 cm; Wt 60.0 kg
[~2025-05-16 16:33] MED LIST changes: -FURO40TA5 MT; -LEVO250T74 MT; -LOSA25TA26 MT; -TIMO5DRO32 EACHEYE; +TIMO5DRO45 EACHEYE
[2025-05-16 16:40] VITALS: O2SAT 100
[2025-05-16] MEDS ORDERED: MORPHINE SULFATE 2 MG/ML INJ (NOT FOR IM USE) IV ONE (17:30)
[2025-05-16] MEDS: MORPHINE SULFATE 4 MG/ML INJ (FOR IV/IM USE) IV SCH (17:48)
[2025-05-16] MEDS: FAMOTIDINE 20MG/2ML VIAL IV ONE (17:48)
[2025-05-16] MEDS: ONDANSETRON HCL 4MG/2ML INJ IV ONE (17:48)
[2025-05-16 17:55] LABS: BASOPHILS % 1.1 % (0.0-2.0); EOSINOPHILS % 7.7 % (0.0-5.0); HEMATOCRIT. 33.3 % (42.0-52.0); HEMOGLOBIN. 11.1 g/dL (14.0-18.0); LYMPHOCYTES % 14.6 % (20.0-50.0); MEAN PLATELET VOLUME 8.7 fl (7.4-10.4); MONOCYTES % 9.1 % (2.0-8.0); NEUTROPHILS % 67.5 % (40.0-76.0); PLATELET 195 x1000/uL (130-400); RED BLOOD CELL COUNT 3.35 mill/uL (4.7-6.1); RED CELL DISTRIBUTION WIDTH 15.5 % (11.6-14.6)
[2025-05-16 18:04] LABS: ETHANOL BLOOD < 10 mg/dL (<10); TROPONIN I HIGH SENSITIVITY 29 ng/L (3.0-53); UREA NITROGEN BLOOD 29 mg/dL (9-23)
[2025-05-16 18:06] LABS: ASPARTATE AMINOTRANSFERASE 30 IU/L (<34); BILIRUBIN DIRECT < 0.1 mg/dL (<=3.0); BILIRUBIN TOTAL 0.5 mg/dL (0.1-1.0); PROTEIN TOTAL 7.3 g/dL (6.0-8.3)
[2025-05-16 18:08] LABS: CREATININE 6.8 mg/dL (0.6-1.3)
[2025-05-16 20:32] LABS: UREA NITROGEN BLOOD 40.0 mg/dL (9-23)
[2025-05-16 20:34] LABS: CREATININE 6.7 mg/dL (0.6-1.3)
[2025-05-16 22:37] LABS: BG BASE EXCESS 4.2 mmol/L (-2.0-3.0); BG CARBOXYHEMOGLOBIN 0.8 % (0.5-1.5); BG DEOXYHEMOGLOBIN 6.6 % (0.0-5.0); BG FRACTION INSPIRED OXYGEN 21; BG HCO3 ACT 29.6 mmol/L (21.0-28.0); BG METHEMOGLOBIN 0.3 % (0.5-1.5); BG OXYGEN SATURATION 93.3 % (94.0-98.0); BG OXYHEMOGLOBIN 92.3 % (94.0-98.0); BG PCO2 48.0 mmHg (35.0-48.0); BG PH 7.408 (7.350-7.450); BG PO2 72.1 mmHg (83.0-108.0); BG SAMPLE SITE RIGHT RADIAL; BG TOTAL HEMOGLOBIN 11.9 g/dL (13.5-17.5); BG VENT MODE ROOM AIR
[2025-05-16] MEDS: INSULIN REGULAR (HUMULIN R) 1000UNITS/10ML VIAL SUBCUT NR (22:46)
[2025-05-17 00:30] VITALS: BP 177/92; PULSE 68; RESP 18; TEMP 36.7; O2SAT 99
[2025-05-20] MEDS ORDERED: CARV12.545 PO (16:46)
[2025-05-20] MEDS ORDERED: LIP40 MT (16:46)
[2025-05-20] MEDS ORDERED: HYDR50TA40 MT (17:16)
== END 2025-05-17 00:30 | disposition home or self-care (01) ==
LOC: ER 16:33 → CMPBEDREQ 05-18 07:21
DX: R10.13 Epigastric pain (principal); E11.65 Type 2 diabetes mellitus with hyperglycemia; E11.22 Type 2 diabetes mellitus with diabetic chronic kidney disease; I12.0 Hypertensive chronic kidney disease with stage 5 chronic kidney disease or end stage renal disease; N18.6 End stage renal disease; Z99.2 Dependence on renal dialysis; Z79.899 Other long term (current) drug therapy; Z79.82 Long term (current) use of aspirin; Z79.4 Long term (current) use of insulin
CPT/HCPCS: 80076; 80048; 82010; 80320; 82962; 83690; 85025; 84484; 36415; 76705; 82805; 82375; 96372; 96374; 96375; 99285; 36600; J1308; J1815; J2405; J2270; Z7610; G0480